=== PATIENT | female | born 1965 | race African-American/Black ===

== ENCOUNTER 2016-12-05 13:36 | Emergency (ER) | payer MEDICAID ==
[~2016-12-05] VITALS: Ht 170.2 cm; Wt 91.0 kg
[2016-12-06] MEDS ORDERED: SULFAMETHOXAZOLE/TRIMETHOPRIM 800/160MG TABLET PO ONE (01:45)
[2016-12-06] MEDS ORDERED: HYDROCODONE/ACETAMINOPHEN 5/325MG TABLET PO ONE (01:45)
[2016-12-06] MEDS ORDERED: CEPHALEXIN 500MG CAPSULE PO ONE (01:45)
[2016-12-06] MEDS ORDERED: DIPHENHYDRAMINE 50MG CAPSULE PO ONE (02:15)
[2016-12-06] MEDS ORDERED: PREDNISONE 20MG TABLET PO ONE (02:15)
[2016-12-06] MEDS ORDERED: FAMOTIDINE 20MG TABLET PO ONE (02:15)
[2016-12-06 02:54] VITALS: BP 149/82
== END 2016-12-06 04:31 | disposition home or self-care (01) ==
LOC: ER 13:36
DX: L02.412 Cutaneous abscess of left axilla (principal)
CPT/HCPCS: 99284; J7512; Z7610; Q0163